=== PATIENT | male | born 1975 | race Caucasian/White ===

== ENCOUNTER 2017-11-19 11:15 | Emergency (ER) | END 2017-11-19 13:13 | disposition home or self-care (01) ==

== ENCOUNTER 2017-11-21 12:58 | Emergency (ER) | END 2017-11-21 13:10 | disposition home or self-care (01) ==

== ENCOUNTER 2017-11-30 09:21 | Emergency (ER) | END 2017-11-30 10:40 | disposition home or self-care (01) ==